=== PATIENT | female | born 1985 | race Asian ===

== ENCOUNTER → 2025-04-02 | Outpatient (CLI) | payer BC, SELFPAY ==
--- NOTE | 2025-04-02 16:33 | XR_ITS ---
Shoulder bilateral, 6 views Technique: Shoulder AP internal rotation, AP external rotation, Y view each shoulder total 6 views Exam date and time :April 02, 2025, 1650 hrs. Indications: Bilateral shoulder pain months. Findings: Moderate osteopenia. Bilateral moderate narrowing glenohumeral joints No shoulder fractures or dislocations No calcific tendinitis Impression: Bilateral moderate narrowing glenohumeral joints No calcific tendinitis
== END | disposition home or self-care (01) ==
LOC: CDIM 16:26
PROVIDERS: Referring Provider Orthopaedic Surgery Adult Reconstructive Orthopaedic Surgery; Visit Provider Orthopaedic Surgery Adult Reconstructive Orthopaedic Surgery
DX: M25.812 Other specified joint disorders, left shoulder (principal); M25.811 Other specified joint disorders, right shoulder
CPT/HCPCS: 73030

== ENCOUNTER 2025-04-04 14:36 | Outpatient (AMB) | payer BC, SELFPAY ==
--- NOTE | 2025-04-04 14:42 | PD.ORTHCLVIS ---
Vital signs 04/04/25 14:47 Height 1.65 m Height Method Measured Weight 65.005 kg Weight Measurement Method Standing Scale BMI 23.8 BP 111/75 Blood Pressure Source Automatic Cuff Blood Pressure Location Left Upper Arm Position Sitting Respiration 16 Pulse 70 Pulse Source Monitor Temp 98.2 F Temp Source Temporal Artery Scan Pulse Oximetry (%) 98 Oxygen Delivery Method Room Air Med/Allergies Allergies & Medications Allergies Sulfa (Sulfonamide Antibiotics) Allergy (Severe, Verified 04/04/25 14:48) Hives Medication Reconciliation Vitamin * 1 tab PO QDAY #0 tabs 07/16/14 [History Confirmed 04/04/25] ferrous sulfate 325 mg (65 mg iron) tablet (Feosol) 325 mg PO BIDWM #0 tabs 07/16/14 [History Confirmed 04/04/25] Bisacodyl * (DULCOLAX *) 5 mg PO QDAY PRN CONSTIPATION ##40 06/14/15 [Rx Confirmed 04/04/25] Hydrocodone/Acetaminophen * (NORCO 5/325 *) 1 tab PO Q8HR PRN ABDOMINAL CRAMPING #20 tabs 06/14/15 [Rx Confirmed 04/04/25] ibuprofen 600 mg tablet 600 mg PO Q8HR PRN PAIN #30 tabs 06/14/15 [Rx Confirmed 04/04/25] sumatriptan succinate 50 mg tablet (Imitrex) 50 mg PO Q2H PRN migraine headache #3 tabs 02/26/18 [Rx Confirmed 04/04/25] dicyclomine 20 mg tablet 20 mg PO BID PRN pain #14 tabs 10/02/22 [Rx Confirmed 04/04/25] pantoprazole 40 mg tablet,delayed release (Protonix) 40 mg PO QDAY #20 tabs 10/02/22 [Rx Confirmed 04/04/25] sucralfate 1 gram tablet (Carafate) 1 g PO TID #30 tabs 10/02/22 [Rx Confirmed 04/04/25] meloxicam 7.5 mg tablet 7.5 mg PO BID #45 tabs 04/04/25 [Rx] Exam Exam Patient is in no acute distress and is cooperative with the examination today. Patient has a normal mood and affect. Breathing is nonlabored. In no respiratory distress. Bilateral extremities were evaluated and demonstrates sensation intact to light touch. Palpable radial pulses are present Bilateral shoulders demonstrate full range of motion. She does have a positive Juan on the left as well as a positive Steven's. She has a negative Yergason's. On the right side she also has positive Juan and full range of motion Assessment and Plan Problem List (1) Rotator cuff impingement syndrome: Status: Acute Plan: Rachel is a 39-year-old female with symptoms of rotator cuff pathology versus shoulder impingement. This been ongoing for over a year and she tried significant conservative treatment including multiple injections as well as anti-inflammatories. I sent her prescription for another anti-inflammatory. At this point in time, I would order a bilateral shoulder MRIs as her symptoms have not been improving. We will see her back after her MRI is done Plan We will plan for an MRI and send her anti-inflammatories. She has already failed conservative treatment Office Procedures GNS Level of Care Nursing/Assessment Patient Status: Initial/New Patient Nursing Assessment/Reassesment: Medication Reconciliation, Update PMH in EMR and Vital Signs Coordination of Care: Complex Care and Chronic Disease 1-5, Education Complex Pt/Fam, Consent,records obtained, informed consent, Results/Orders obtained and Staff clarify orders New Patient Charge New Patient Point Assignment: [id number] New Patient Point Charge: VICE PRESIDENT OF CONSULTING SERVICES Level 3 ([id number]) MA Intake Visit Data Collection New Patient or Established: New Patient (never been to [facility]) Reason for Visit:: BURSITIS BILATERAL SHOULDER Seen by Clinical Staff ONLY (RN/MA): No 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 PCP or OBGYN visit in last 3 months: Yes Hx Now: No Do You Feel Safe at Home: Yes Authorities Contacted: N/A Questionairres Past Medical History Past Medical History Have you ever been diagnosed with any of the following: Neurological Problems Migraine: Yes Respiratory Problems Asthma: No Genital/Urinary Problems Renal Disease: No Endocrine Problems Diabetes Mellitus Type 2: No Blood Problems Sickle Cell Disease: No Subjective Visit Visit for: new patient and shoulder Immunization / Flu Flu Vaccine in the Last 12 Months: Yes Flu Vaccine Exclusion Criteria: Already Received History of Present Illness Chief complaint: BURSITIS BILATERAL SHOULDER Date of injury / onset of symptoms: 1 YEAR Rachel is a 39-year-old female with bilateral shoulder pain worse on the left. Has been ongoing for over a year. She has had 2 injections in the left shoulder with minimal relief. She is very active. She reports that strength is the main issue and she has difficulty with overhead activities. She reports that range of motion is less of an issue. 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
[2025-04-04 14:47] VITALS: BP 111/75; PULSE 70; RESP 16; TEMP 36.8; O2SAT 98; BMI 23.8
== END 2025-04-04 15:07 | disposition home or self-care (01) ==
LOC: HODSRG 14:36
PROVIDERS: PCP Family Medicine; Referring Provider Family Medicine; Supervising Provider Orthopaedic Surgery Adult Reconstructive Orthopaedic Surgery; Visit Provider Orthopaedic Surgery Adult Reconstructive Orthopaedic Surgery
DX: M25.512 Pain in left shoulder (principal); M25.511 Pain in right shoulder
CPT/HCPCS: 99203; G0463

== ENCOUNTER 2025-04-30 13:29 | Outpatient (AMB) | payer BC, SELFPAY ==
--- NOTE | 2025-04-30 13:52 | ORTHONT_ITS ---
Vital signs 04/30/25 13:53 Height 1.65 m Height Method Measured Weight 65.941 kg Weight Measurement Method Standing Scale BMI 24.2 BP 97/64 Blood Pressure Source Automatic Cuff Blood Pressure Location Left Upper Arm Position Sitting Respiration 19 Pulse 72 Pulse Source Monitor Temp 98.0 F Temp Source Temporal Artery Scan Pulse Oximetry (%) 98 Oxygen Delivery Method Room Air Med/Allergies Allergies & Medications Allergies Sulfa (Sulfonamide Antibiotics) Allergy (Severe, Verified 04/30/25 13:54) Hives Medication Reconciliation Vitamin * 1 tab PO QDAY #0 tabs 07/16/14 [History Confirmed 04/30/25] ferrous sulfate 325 mg (65 mg iron) tablet (Feosol) 325 mg PO BIDWM #0 tabs 07/16/14 [History Confirmed 04/30/25] Bisacodyl * (DULCOLAX *) 5 mg PO QDAY PRN CONSTIPATION ##40 06/14/15 [Rx Confirmed 04/30/25] Hydrocodone/Acetaminophen * (NORCO 5/325 *) 1 tab PO Q8HR PRN ABDOMINAL CRAMPING #20 tabs 06/14/15 [Rx Confirmed 04/30/25] ibuprofen 600 mg tablet 600 mg PO Q8HR PRN PAIN #30 tabs 06/14/15 [Rx Confirmed 04/30/25] sumatriptan succinate 50 mg tablet (Imitrex) 50 mg PO Q2H PRN migraine headache #3 tabs 02/26/18 [Rx Confirmed 04/30/25] dicyclomine 20 mg tablet 20 mg PO BID PRN pain #14 tabs 10/02/22 [Rx Confirmed 04/30/25] pantoprazole 40 mg tablet,delayed release (Protonix) 40 mg PO QDAY #20 tabs 10/02/22 [Rx Confirmed 04/30/25] sucralfate 1 gram tablet (Carafate) 1 g PO TID #30 tabs 10/02/22 [Rx Confirmed 04/30/25] meloxicam 7.5 mg tablet 7.5 mg PO BID #45 tabs 04/04/25 [Rx Confirmed 04/30/25] Exam Exam Patient is in no acute distress and is cooperative with the examination today. Patient has a normal mood and affect. Breathing is nonlabored. In no respiratory distress. Bilateral extremities were evaluated and demonstrates sensation intact to light touch. Palpable radial pulses are present Bilateral shoulders demonstrate full range of motion. She does have a positive Juan on the left as well as a positive Steven's. She has a negative Yergason's. On the right side she also has positive Juan and full range of motion An MRI of the left shoulder was reviewed. This demonstrates tendinitis of the supraspinatus. There is no significant tear Assessment and Plan Problem List (1) Rotator cuff impingement syndrome: Status: Acute Plan: Rachel is a 39-year-old female with symptoms of rotator cuff pathology versus shoulder impingement. The MRI demonstrates supraspinatus tendinitis. We thus discussed nonoperative treatment including anti-inflammatories as well as a cortisone injection. She would like a cortisone injection today Plan Recommend shoulder cortisone injection as patient would like to proceed with conservative treatment at this time. The risks and benefits of the procedure were reviewed with the patient and patient gave verbal consent to continue with the procedure. Procedure: performed by Dr. Castro Using sterile technique the left shoulder was thoroughly prepped with alcohol, and approximately 1 cc of Depo- Medrol 80mg/mL and 4 cc of 0.2% ropivacaine was injected without resistance into the subacromial space. The patient tolerated the procedure. Office Procedures GNS Level of Care Nursing/Assessment Patient Status: Established Patient Nursing Assessment/Reassesment: Medication Reconciliation, Update PMH in EMR and Vital Signs Coordination of Care: Complex Care and Chronic Disease 1-5, Education Complex Pt/Fam, Consent,records obtained, informed consent, Lab and Imaging orders, Results/Orders obtained and Staff clarify orders Established Patient Charge Established Patient Point Assignment: 110 Established Patient Point Charge: EP Level 3 (80-115) Surgical Proc/IM SQ injection Minor Surgical Procedure: Yes (SHOULDER INJECTION ) Medication Given Medication Given Medication Given: Yes Documented Dose Given: 1 Route: Infiitration Medication Given Medication Given Medication Given: Yes Documented Dose Given: 4 Route: Infiitration Office Meds methylprednisolone acetate 80 mg/mL suspension for injection Performing Provider: Mynor Castro MD Performing Location: [facility] Administered by: Mynor Castro MD on 04/30/25 14:15 Dose Route Admin Location Dispensed Lot Number Expiration Date Pack age [facility] Director Of Business Services 80 mg intra-articular 1 mL [id number] 12/31/26 [address]-6 [id number] [employer] ropivacaine (PF) 2 mg/mL (0.2 %) injection solution Performing Provider: Mnyor Castro MD Performing Location: [facility] Administered by: Mynor Castro MD on 04/30/25 14:15 Dose Route Admin Location Dispensed Lot Number Expiration Date Pack age [facility] Director Of Business Services 20 mL Infiltration 20 mL [id number] 08/02/27 46657-986-51 [id number] [facility] Intake Visit Data Collection New Patient or Established: Established Patient (seen at [facility] within 3 years) Reason for Visit:: MRI RESULTS Seen by Clinical Staff ONLY (RN/MA): No 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 PCP or OBGYN visit in last 3 months: Yes Hx Now: No Do You Feel Safe at Home: Yes Authorities Contacted: N/A Questionairres Past Medical History Past Medical History Have you ever been diagnosed with any of the following: Neurological Problems Migraine: Yes Respiratory Problems Asthma: No Genital/Urinary Problems Renal Disease: No Endocrine Problems Diabetes Mellitus Type 2: No Blood Problems Sickle Cell Disease: No Subjective Visit Visit for: follow up visit and knee Immunization / Flu Flu Vaccine in the Last 12 Months: Yes Flu Vaccine Exclusion Criteria: Already Received History of Present Illness Chief complaint: MRI RESULTS Date of injury / onset of symptoms: 1 YEAR Rachel is a 39-year-old female with bilateral shoulder pain worse on the left. Has been ongoing for over a year. She has had 2 injections in the left shoulder with minimal relief. She is very active. She reports that strength is the main issue and she has difficulty with overhead activities. She reports that range of motion is less of an issue. 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
[2025-04-30 13:53] VITALS: BP 97/64; PULSE 72; RESP 19; TEMP 36.7; O2SAT 98; BMI 24.2
== END 2025-04-30 14:19 | disposition home or self-care (01) ==
LOC: HODSRG 13:29
PROVIDERS: PCP Family Medicine; Referring Provider Family Medicine; Supervising Provider Orthopaedic Surgery Adult Reconstructive Orthopaedic Surgery; Visit Provider Orthopaedic Surgery Adult Reconstructive Orthopaedic Surgery
DX: M25.512 Pain in left shoulder (principal); M25.511 Pain in right shoulder
CPT/HCPCS: 20610; 99213; J1010; J2795; G0463

== ENCOUNTER → 2025-06-19 | Outpatient (CLI) | payer BC, SELFPAY ==
--- NOTE | 2025-06-19 08:00 | XR_ITS ---
Examination: MRI cervical spine without intravenous contrast Date and time of exam: June 19, 2025, 0915 hours INDICATIONS: Neck pain radiating down the arms with paresthesias in the arms 6 months Technique: Multiple axial and sagittal sections of the cervical spine to been obtained. T2 weighted sagittal sections, TR 3, 270, TE 117 T1-weighted sagittal sections, TR 500, TE 11 T1-weighted axial sections, TR 607, TE 12, axial sections TR 18, TE 27 and T2 weighted transverse sections, TR 3920, TE 122. Findings: Straightening normal cervical lordosis No cervical fracture Intact odontoid Diffuse cervical disc desiccation C2-C3 no disc protrusion C3-C4 3 mm central subarticular disc bulge C4-C5 no disc protrusion C5-C6 no disc protrusion C6-C7 2 mm central left paracentral osteophyte disc complex C7-T1 no disc protrusion IMPRESSION: C3-C4 3 mm central subarticular disc bulge C6-C7 2 mm central left paracentral osteophyte disc complex
== END | disposition home or self-care (01) ==
LOC: SMRI 07:36
PROVIDERS: PCP Family Medicine; Referring Provider Orthopaedic Surgery Adult Reconstructive Orthopaedic Surgery; Visit Provider Orthopaedic Surgery Adult Reconstructive Orthopaedic Surgery
DX: M25.78 Osteophyte, vertebrae (principal)
CPT/HCPCS: 72141

== ENCOUNTER 2025-06-21 10:49 | Outpatient (AMB) | payer BC, SELFPAY ==
--- NOTE | 2025-06-21 11:04 | ORTHONT_ITS ---
Med/Allergies Allergies & Medications Allergies Sulfa (Sulfonamide Antibiotics) Allergy (Severe, Verified 04/30/25 13:54) Hives Assessment and Plan Problem List (1) Rotator cuff impingement syndrome: Status: Acute Plan: Rachel is a 39-year-old female with symptoms of rotator cuff pathology versus shoulder impingement and cervical radiculopathy. The MRI demonstrates supr aspinatus tendinitis. We thus discussed nonoperative treatment including anti- inflammatories as well as a cortisone injection. we discussed the physical therapy for both her neck and shoulder pathology (2) Cervical radiculopathy: Status: Acute Questionairres Past Medical History Past Medical History Have you ever been diagnosed with any of the following: Neurological Problems Migraine: Yes Respiratory Problems Asthma: No Genital/Urinary Problems Renal Disease: No Endocrine Problems Diabetes Mellitus Type 2: No Blood Problems Sickle Cell Disease: No Subjective Immunization / Flu Flu Vaccine in the Last 12 Months: Yes Flu Vaccine Exclusion Criteria: Already Received History of Present Illness Chief complaint: Left shoulder pain and neck pain Patient is a 39-year-old female with left neck pain shoulder pain that radiates to her hands. We discussed her MRI results and discussed that this is due to severe focal radiculopathy as well as biceps tendinitis which was shown on her MRI of both her shoulder and her neck. She would like to continue with conservative treatment. We will thus start with physical therapy Review of Systems Review of Systems: All systems negative unless otherwise noted in HPI.
== END 2025-06-21 11:04 | disposition home or self-care (01) ==
LOC: HODSRG 10:49
PROVIDERS: PCP Family Medicine; Referring Provider Family Medicine; Supervising Provider Orthopaedic Surgery Adult Reconstructive Orthopaedic Surgery; Visit Provider Orthopaedic Surgery Adult Reconstructive Orthopaedic Surgery
DX: M75.40 Impingement syndrome of unspecified shoulder (principal); M54.12 Radiculopathy, cervical region
CPT/HCPCS: 99213; G0463